=== PATIENT | female | born 1980 | race African-American/Black ===

== ENCOUNTER → 2020-07-30 09:45 | Outpatient (BNVA) | payer BC, SELFPAY | PROVIDERS: PCP Student in an Organized Health Care Education/Training Program; Visit Provider Internal Medicine Cardiovascular Disease | DX: I10 Essential (primary) hypertension (principal); G47.30 Sleep apnea, unspecified; Z79.899 Other long term (current) drug therapy | CPT/HCPCS: 99204; 93005 ==

== ENCOUNTER → 2020-11-04 10:14 | Outpatient (REF) | payer BC, SELFPAY ==
--- NOTE | 2020-11-04 10:17 | CA_ITS ---
Transthoracic Echocardiogram Patient (Last, First, Middle): Jl Burns, Gender: Female Date of : 1980 Age: 40 Procedure Date: 11/04/2020 Procedure Type: Transthoracic Echocardiogram Location: OP Height: 170.18 cm Weight: 92.53 kg BSA: 2.04 m2 Heart Rate: bpm BP: 160 / 90 mmHg Grid Trimmer: RODERICK Referring MD: Giacomo Toussaint MD Supervisor [employer] Drilling: Jett Munguia MD Symptoms: I10 - Essential (primary) hypertension Study Quality: Good ECG Rhythm: Sinus Conclusions: - 1. Normal LV systolic function with moderate LVH with pseudonormal filling pattern 2. Mildly dilated with left and right atrium 3. Normal cardiac valvular Doppler 4. Normal RV systolic pressure 5. No gross pericardial effusion Findings Left Ventricle Normal left ventricular size and systolic function. There is moderately increased left ventricular wall thickness. The visually estimated ejection fraction is between 60-65%. Spectral Doppler is indicative of a pseudonormal filling pattern. E/E prime ratio is between 8 and 15 consistent with indeterminate filling pressures. Right Ventricle Normal right ventricular cavity size and systolic function. Atria The left atrium is mildly dilated. There is no evidence of interatrial shunt. The right atrium is mildly dilated. Aortic Valve Normal aortic valve structure and function. There is no aortic valve stenosis. There is no aortic valve regurgitation. Mitral Valve Normal mitral valve structure and function. There is trace mitral valve regurgitation. There is no mitral valve stenosis. Pulmonic Valve The pulmonic valve is likely normal. There is trace pulmonic valve regurgitation. Tricuspid Valve Normal tricuspid valve structure. There is trace tricuspid valve regurgitation. The right ventricular systolic pressure is normal. The right ventricular systolic pressure is 32 mmHg. Normal right atrial pressure. There is no evidence of pulmonary hypertension. Great Vessels All visible segments of the aorta are normal in size. The pulmonary artery was not well visualized. Venous The inferior vena cava is normal in size and collapses greater than 50% with inspiration. Pericardium/Pleural There is no evidence of pericardial effusion. Prior Study Comparison Changes noted compared to prior study dated: 06/06/2018. LVH is moderate Measurements M-Mode Liner Measurements Normals - Women/Men IVSd: 1.94 0.6-0.9/0.6-1.0 cm LVIDd: 5.44 3.9-5.3/4.2-5.9 cm LVIDd Index: 2.67 1.9-3.2 cm/m2 LVIDs: 3.32 2.0-3.8 cm LVPWd: 1.71 0.6-0.9/0.6-1.0 cm LV Mass: 613.70 67-162/88-224g LV Mass Index: 300.84 43-95/49-115 g/m2 M-Mode Volumes LV EDV: 144.00 LV ESV: 44.80 2D Linear Measurements IVSd: 1.49 0.6-0.9/0.6-1.0 cm LVIDd: 5.29 3.9-5.3/4.2-5.9 cm LVIDd Index: 2.59 2.4-3.2/2.2-3.1 cm/m2 LVIDs: 3.62 2.0-3.6 cm LVPWd: 1.52 0.7-1.1 cm Ao Root: 2.60 2.1-3.5 cm LA Diam: 4.60 2.7-3.8/3.0-4.0 cm LAIDs Index: 2.25 1.5-2.3 cm/m2 LV Mass: 440.70 67-162/88-224 g LV Mass Index: 216.03 43-95/49-115 g/m2 LVOT Diam: 2.10 3.0+(-)1.3 cm 2D Systolic Function EF 4C: 64.30 >55% EF 2C: 48.00 >55% EF BiP: 55.70 >55% M-Mode Systolic Function FS: 39.00 27-47/25-43% LVEF: 68.90 >55% Mitral Valve MV Pk E: 0.76 MV PK A: 0.55 MV Decel Time: 258.00 E/A: 1.40 E'Lateral: 7.29 E'Medial: 6.09 E/E' Med: 12.50 E/E' Lat: 10.40 PHT: 76.00 MVA PHT: 2.89 Decel [place]: 2.94 Aortic Valve AoV Pk Hammad: 1.67 AoV Pk Grad: 11.00 LVOT LVOT Pk Hammad: 1.45 LVOT Mn Hammad: 0.93 LVOT VTI: 0.32 LVOT Pk Grad: 8.00 LVOT Mn Grad: 4.00 LVOT Diam: 2.10 LVOT Area: 3.46 Diastolic Function MV Pk E: 0.76 MV Pk A: 0.55 E/A: 1.40 E'Medial: 6.09 E/E' Med: 12.50 E' Laterial: 7.29 E/E' Lat: 10.40 Right Ventricle TAPSE (mm): 2.77 Tricuspid Valve TR Pk Hammad: 2.70 TR Pk Grad: 29.00 RA Press: 3.00 RVSP: 32.00 Great Vessels Aorta Ao Root-2D: 2.60 2.0-3.7 cm Ao Asc: 3.40 2.1-3.4 cm Updated in Other Vendor System with Status of Final Jett Munguia MD electronically signed on 11/04/2020 4:29:19 PM with status of Final
== END ==
LOC: HO.CARD 10:14
PROVIDERS: PCP Student in an Organized Health Care Education/Training Program; Visit Provider Internal Medicine Cardiovascular Disease
DX: I10 Essential (primary) hypertension (principal)
CPT/HCPCS: 93306

== ENCOUNTER → 2020-11-11 10:17 | Outpatient (BNVA) | payer BC, SELFPAY | PROVIDERS: PCP Student in an Organized Health Care Education/Training Program; Referring Provider Student in an Organized Health Care Education/Training Program; Visit Provider Internal Medicine Cardiovascular Disease | DX: I10 Essential (primary) hypertension (principal) | CPT/HCPCS: 93005 ==

== ENCOUNTER 2022-12-22 10:12 | Outpatient (REF) | payer BC, SELFPAY ==
[2022-12-22 14:47] LABS: Alanine Aminotransferase 11 U/L (0-31); Albumin Level 4.1 g/dL (3.5-5.0); Alkaline Phosphatase 41 U/L (39-117); Anion Gap 13 (12-20); Aspartate Amino Transferase 14 U/L (5-31); Bilirubin Total 0.6 mg/dL (0.0-1.0); Blood Urea Nitrogen 26 mg/dL (9-16); Calcium 9.4 mg/dL (8.4-10.2); Carbon Dioxide 25 mmol/L (22-29); Chloride 105 mmol/L (96-108); Estimated Glomerular Filt Rate 58; Glucose Random 79 mg/dL (60-115); Magnesium 2.3 mg/dL (1.6-2.6); Sodium 139 mmol/L (135-145); Total Protein 7.4 g/dL (6.5-8.0)
[2023-01-01 15:09] LABS: Aldosterone/Renin Ratio 9.4 Ratio (0.9-28.9); Plasma Renin Activity 0.32 ng/mL/h (0.25-5.82)
== END 2022-12-22 10:13 | disposition home or self-care (01) ==
LOC: HO.CHCLDS 10:12
PROVIDERS: Visit Provider Family Medicine
DX: I10 Essential (primary) hypertension (principal)
CPT/HCPCS: 36415; 80053; 82088; 83735

== ENCOUNTER 2022-12-28 11:26 | Outpatient (REF) | payer BC, SELFPAY ==
[2023-01-01 14:19] LABS: Metanephrine, Free 24U 162 mcg/24 h (58-203); Normetanephrine, Free 24U 333 mcg/24 h (88-649); Total Metanephrine, Free 24U 495 mcg/24 h (182-739); Total Volume 24U 1175 mL
== END 2022-12-28 11:27 | disposition home or self-care (01) ==
LOC: HO.CHCLNP 11:26
PROVIDERS: Visit Provider Family Medicine
DX: I10 Essential (primary) hypertension (principal)
CPT/HCPCS: 83835

== ENCOUNTER 2024-01-10 16:07 | Outpatient (REF) | payer BC, SELFPAY ==
[2024-01-11 10:47] LABS: Bacterial Vaginosis PCR NEGATIVE (Negative); Candida Group PCR NOT DETECTED (Not Detect); Candida glab krusei PCR NOT DETECTED (Not Detect); Trichomonas vaginalis PCR NOT DETECTED (Not Detect)
== END 2024-01-10 16:08 | disposition home or self-care (01) ==
LOC: HO.CHCLNP 16:07
PROVIDERS: Visit Provider Family Medicine
DX: N76.0 Acute vaginitis (principal); R30.0 Dysuria
CPT/HCPCS: 0352U; 87086

== ENCOUNTER 2024-04-30 11:38 | Outpatient (REF) | payer BC, SELFPAY ==
[2024-05-01 11:26] LABS: HPV 16,18/45 See PAP report
[2024-05-03 02:58] LABS: C. trachomatis RNA TMA NOT DETECTED (NOT DETECTED); N. gonorrhoeae RNA TMA NOT DETECTED (NOT DETECTED); Trichomonas (NAAT) NOT DETECTED (NOT DETECTED)
== END 2024-04-30 11:39 | disposition home or self-care (01) ==
LOC: HO.LNP 11:38
PROVIDERS: Visit Provider Family Medicine
DX: Z12.4 Encounter for screening for malignant neoplasm of cervix (principal); Z11.51 Encounter for screening for human papillomavirus (HPV); Z11.3 Encounter for screening for infections with a predominantly sexual mode of transmission
CPT/HCPCS: 87491; 87591; 87626; 87661; 88175

== ENCOUNTER 2024-04-30 12:46 | Outpatient (REF) | payer BC, SELFPAY ==
[2024-04-30 14:30] LABS: Estimated Average Glucose 100 mg/dL; Hemoglobin A1C 91.3394 umol/L; Hemoglobin A1c % 5.1 % (<6.0); Total Hemoglobin (HGBA1C) 2793.9564 umol/L
[2024-04-30 14:40] LABS: Rheumatoid Factor < 13.0 IU/mL (<15.0)
[2024-04-30 14:41] LABS: Uric Acid 4.4 mg/dL (2.4-5.7)
[2024-04-30 14:45] LABS: Erythrocyte Sedimentation Rate 20 MM/HR (0-20)
[2024-04-30 14:51] LABS: Alanine Aminotransferase < 6 U/L (0-31); Alkaline Phosphatase 49 U/L (39-117); Anion Gap 7 (12-20); Aspartate Amino Transferase 17 U/L (5-31); Bilirubin Direct 0.3 mg/dL (0.0-0.5); Bilirubin Total 0.8 mg/dL (0.0-1.0); Blood Urea Nitrogen 15 mg/dL (9-16); C Reactive Protein < 0.10 mg/dL (< or = 0.50); Calcium 8.6 mg/dL (8.4-10.2); Carbon Dioxide 24 mmol/L (22-29); Chloride 112 mmol/L (96-108); Cholesterol 133 mg/dL (<200); Estimated Glomerular Filt Rate > 60; Glucose Random 67 mg/dL (60-115); HDL Cholesterol 48 mg/dL (>40); LDL Cholesterol Calculated 76 mg/dL (<100); Potassium 4.2 mmol/L (3.3-5.1); Sodium 139 mmol/L (135-145); Total Protein 7.1 g/dL (6.5-8.0); Triglycerides 49 mg/dL (<150)
== END 2024-04-30 12:47 | disposition home or self-care (01) ==
LOC: HO.CHCLDS 12:46
PROVIDERS: PCP Student in an Organized Health Care Education/Training Program; Referring Provider Pediatrics; Visit Provider Student in an Organized Health Care Education/Training Program
DX: E11.9 Type 2 diabetes mellitus without complications (principal); I10 Essential (primary) hypertension; M25.562 Pain in left knee
CPT/HCPCS: 36415; 80048; 80061; 80076; 83036; 84550; 85652; 86140; 86431

== ENCOUNTER 2024-11-25 16:28 | Outpatient (REF) | payer BC, SELFPAY ==
--- OUTSIDE RECORDS SUMMARY | 2024-11-25 16:30 | XMS_ITS | Encounter Summary ---
Author Organization [employer] Address [address] [place] [address] Care Team Providers Care Automotive Exhaust Emissions Technician Name Role Phone Kathryn Naqvi MD Primary Care Provider [phone] Reason for Visit * Reason Onset Date Comments triage 07/14/2022 Encounter Details Date Type Department Care Team ([facility] st Contact Info) Description 07/14/2022 Telephone [facility] MED[facility] [address] [place] [address] Kathryn Naqvi MD [address] [place] [address] triage Social History Tobacco Use Types Packs/Day Years Used Date Smoking Tobacco: Never Assessed Comments Unknown Sex and Gender Information Value Date Recorded Sex Assigned at Female 02/14/2022 10:22 AM EDT Legal Sex Female 10:22 AM EDT Gender Identity Choose not to disclose 10:22 AM EDT Sexual Orientation Choose not to disclose 2021 10:22 AM EDT documented as of this encounter Miscellaneous Notes * Telephone Encounter - Erica Greenwood RN - 07/14/2022 1:32 PM EDT Triage call Pt reports for month now , wakes up with bruises on bilateral lower legs. Pt reports bruises are yellowish-purple and > half dollar size. Pt reports legs don't hurt unless sitting downor laying down and especially at night. Pt has 2 bruises on right leg and 1 on left leg. apt with Dr. Eisenberg 07/20 @ 1115am, Pt agrees with disposition and home care reviewed. Protocol Used: Bruises (Adult) Protocol-Based Disposition: See in Office or Video Visit within 2 Weeks Positive Triage Question: * Bruising easily is a chronic symptom (recurrent or ongoing AND present > 4 weeks) * All higher-acuity triage questions were negative Care Advice Discussed: * Reassurance and Education * Apply Local Cold * Use Heat on Area After 48 Hours * Pain Medicines * Pain Medicines - Extra Notes and Warnings * Avoid Aspirin * Note to Triager - Aspirin * Expected Course * Reasons To Call Back - Bruise is not fading by 10 days - Bruise persists over 3 weeks - You become worse * Telephone Encounter - Cb López - 07/14/2022 9:44 AM EDT Symptoms: Bruises - Not From Injury, Leg Pain - Not From Injury Outcome: Schedule an urgent appointment (within 1 hour) or talk to a nurse or provider soon Reason: Severe pain now The caller accepted this outcome documented in this encounter Plan of Treatment Upcoming Encounters Date Type Department Care Team (Late st Contact Info) Description 01/13/2025 10:15 AM EDT Office Visit [facility] [address] [place] [address] Kathryn Naqvi MD [address] [place] [address] documented as of this encounter Visit Diagnoses Not on filedocumented in this encounter Care Teams Automotive Exhaust Emissions Technician Relationship Specialty Start Date End Date Kathryn Naqvi MD [address] [place] [id number] PCP - General Family Medicine 05/16/13 documented as of this encounter
--- OUTSIDE RECORDS SUMMARY | 2024-11-25 16:30 | XMS_ITS | Clinical Summary ---
Author Organization [facility] Address [address] [facility] [place] [address] Phone Care Team Providers Care Educational Guidance Counselor Name Role Phone Kathryn Naqvi MD Primary Care Provider [phone] Allergies Active Allergy Reactions Criticality Noted Date Comments Amlodipine Itching 05/17/2023 Doxycycline 05/16/2024 Hydralazine Other 09/18/2024 Possible hydralazine associated pericardial effusion Medications albuterol sulfate (ProAir RespiClick) 90 mcg/actuation aerosol powdr breath activated Inhale into the lungs. Active carvediloL (COREG) 25 mg tablet Take 1.5 Tablets by mouth 2 times daily (with meals). 11/16/2023 Active lisinopril (PRINIVIL,ZESTR IL) 40 mg tablet Take 1 tablet (40 mg total) by mouth 1 (one) time each day. 90 tablet 1 06/14/2024 Active spironolactone (ALDACTONE) 25 mg tablet Take 1 tablet (25 mg total) by mouth 1 (one) time each day. 90 tablet 1 06/14/2024 Active ALPRAZolam (XANAX) 0.5 mg tablet Take 1 tablet (0.5 mg total) by mouth 1 (one) time each day if needed. 08/19/2024 Active sertraline (ZOLOFT) 25 mg tablet Take 1 tablet (25 mg total) by mouth 1 (one) time each day in the morning. 08/20/2024 Active cloNIDine (CATAPRES) 0.1 mg tablet Take 1 tablet (0.1 mg total) by mouth if needed for high blood pressure. Active Active Problems Problem Noted Date Diagnosed Date Hypertensive heart disease without heart failure 09/18/2024 Assessment & Plan (09/18/2024 9:53 AM EDT): The patient has a history of hypertensive heart disease. she has a history of resistant hypertension. Previous cardiac MRI showed evidence of mild LVH, normal LVEF, and evidence of nonischemic fibrosis. Infiltrative cardiomyopathy was deemed to be less likely as a cause of the patient's LVH and nonischemic fibrosis. The patient's blood pressure is currently well-controlled. As such, we will continue her current medication regimen. Abnormal Papanicolaou smear of cervix with positive human papilloma virus (HPV) test 05/08/2024 Overview (05/08/2024): HPV test positive 08/29 Pericardial effusion 12/13/2023 Overview (05/08/2024): Last Assessment & Plan: The patient was found to have a pericardial effusion on her cardiac MRI. Cardiac MRI described the size of the pericardial effusion is moderate. There was no evidence of tamponade on the cardiac MRI images. The patient does not have any symptoms suggestive of pericarditis. She does not have any history of recent viral illnesses. A follow-up imaging study was done with an echocardiogram in August 2023 that showed a small sized pericardial effusion. Again, there was no evidence of tamponade. Laboratory testing was done to exclude potential causes of the pericardial effusion. Laboratory testing done on 09/21/2023 showed normal serum electrolytes, normal renal function, mild anemia, normal LFTs, normal TSH, normal ODILIA test, normal sed rate, and normal CRP level. The patient's last screening mammogram was done 4 years ago and it was noted to be normal. I discussed this with the patient. She will follow-up with her primary care physician to consider the need for a repeat mammogram given the finding of the pericardial effusion. On the other hand, the patient is on chronic therapy with hydralazine. Hydralazine can cause pericardial effusions. As such, I instructed the patient to discontinue the hydralazine. To maintain her blood pressure controlled, will increase the dose of her carvedilol. The patient will undergo a stress echocardiogram to rule out ischemia as a cause of her episodes of atypical chest discomfort. Will do stress test to reevaluate the size of her pericardial effusion. Assessment & Plan (09/18/2024 9:53 AM EDT): The patient has a history of a pericardial effusion. The pericardial effusion was noted to be moderate in size on a prior cardiac MRI. TSH level was normal. ODILIA test was negative. Sed rate was normal. CRP level was normal. Pericardial effusion was deemed to be secondary to the use of hydralazine. Hydralazine was discontinued. Afterwards, transthoracic echo showed a small pericardial effusion. Subsequent stress echo showed a trivial pericardial effusion. At this point, we will order a follow-up echocardiogram to reevaluate her pericardial effusion. Orders: Transthoracic echocardiogram (TTE) complete with PRN contrast, bubble, strain, and 3D order panel; Future perflutren lipid microsphere (DEFINITY) 1.3 mL in sodium chloride 0.9% 8.7 mL injection Assessment & Plan (05/16/2024 10:00 AM EST): The patient was found to have pericardial effusion on cardiac MRI which was noted to be moderate in size with no evidence of tamponade. Follow-up echocardiogram August 2023 showed small size pericardial effusion with no evidence of tamponade. Lab testing was done including normal ODILIA, sed rate and CRP level. She continues to follow with her primary care physician regarding maintenance of mammograms. Her hydralazine was discontinued. Recent stress echocardiogram showed resting echocardiogram with trivial pericardial effusion. At this point, we will continue to monitor with periodic echocardiograms to monitor for progression and she will notify me of any changes in her symptoms. Snoring 05/17/2023 Overview (05/08/2024): Last Assessment & Plan: The patient has a history of nighttime snoring. She also has a history of obesity and resistant hypertension. As such, we will proceed with a sleep study to rule out the presence of sleep apnea. Assessment & Plan (09/18/2024 9:53 AM EDT): The patient has a history of nighttime snoring. She has a history of resistant hypertension and will need to consider the possibility that sleep apnea may be contributing to her persistent hypertension. Previously, she was referred for a sleep study but it seems that this has not been done. Will refer the patient again for a sleep study. Assessment & Plan (05/16/2024 10:00 AM EST): I have given the patient the number to sleep medicine services to arrange her sleep study. Morbid obesity ([facility] V24, [facility] V28) 2014 Asthma 10/21/2014 HTN (hypertension) 10/21/2014 Overview (05/08/2024): Last Assessment & Plan: The patient has a history of resistant hypertension. The patient states that her hypertension was diagnosed around the age of 24. The patient does have evidence of endorgan damage in the form of hypertensive heart disease as described on her cardiac MRI. Of note, her LVEF is noted to be normal on the cardiac MRI. The patient is currently on carvedilol, lisinopril, hydralazine, and spironolactone. Given her pericardial effusion and the possibility that the hydralazine may be contributing to this, we will discontinue the hydralazine. In its place, we will increase her carvedilol to 37.5 mg orally twice a day. Previous testing to rule out secondary causes of hypertension has been nonrevealing. Renal artery duplex done recently did not show any significant renal artery stenosis. Previous plasma metanephrine level does not show any evidence suggestive of pheochromocytoma. Previous laboratory testing did not show any evidence of hyperaldosteronism. Sleep study was also ordered to rule out sleep apnea as a cause of her hypertension and the sleep study is pending to be completed in January 2024. Assessment & Plan (09/18/2024 9:53 AM EDT): The patient has a history of resistant hypertension. The patient states that her hypertension was diagnosed around the age of 24. The patient does have evidence of endorgan damage in the form of hypertensive heart disease as described on her cardiac MRI. Of note, her LVEF is noted to be normal on the cardiac MRI and on subsequent echocardiograms. The patient is currently on carvedilol, lisinopril, and spironolactone. Blood pressure is well-controlled. Previous testing to rule out secondary causes of hypertension has been nonrevealing. Renal artery duplex done recently did not show any significant renal artery stenosis. Previous plasma metanephrine level does not show any evidence suggestive of pheochromocytoma. Previous laboratory testing did not show any evidence of hyperaldosteronism. The patient does have a history of nighttime snoring and therefore we need to consider the possibility of sleep apnea. However, a sleep study has not been done as previously requested. Will refer the patient again for a sleep study. Assessment & Plan (05/16/2024 10:00 AM EST): The patient has a history of resistant hypertension which has been chronic dating back to the age of 24. She did undergo a cardiac MRI in the past which stated that it could represent hypertensive heart disease and less likely infiltrative cardiomyopathy. LVEF was noted to be normal. She is currently on carvedilol 37.5 mg orally twice daily, lisinopril 40 mg orally daily, spironolactone 25 mg orally daily and recently was started on clonidine 0.1 mg orally twice daily. Hydralazine was discontinued due to history of pericardial effusion. In the past, secondary causes of hypertension were nonrevealing as outlined above. On today's visit, she denies any cardiac symptoms related to hypertension. She was recently started on clonidine. She has not taken spironolactone yet today. Blood pressure 140/90. We discussed her hypertension in depth today. Did consider the possibility of referring to nephrology for further management, however at this point we discussed that we will proceed with a sleep study as scheduled and continue to monitor her blood pressures after the recent start of clonidine. In the future, could consider increasing clonidine as well. The patient agrees with this plan. She will notify me of any consistently elevated blood pressure readings. I have reviewed with the patient the importance of a heart healthy lifestyle which includes eating a low-fat low-salt diet, getting regular exercise, maintaining a healthy weight, not smoking, and following up with routine medical care. Ascending aorta dilation ([facility] V24) 5 Assessment & Plan (09/18/2024 9:53 AM EDT): The patient was found to have a mild ascending aorta dilation on a prior echocardiogram. Will order a follow-up echocardiogram to reevaluate the ascending aorta dilation. Orders: Transthoracic echocardiogram (TTE) complete with PRN contrast, bubble, strain, and 3D order panel; Future perflutren lipid microsphere (DEFINITY) 1.3 mL in sodium chloride 0.9% 8.7 mL injection Assessment & Plan (05/16/2024 10:00 AM EST): Patient's recent fasting lipid panel April 2024 showed acceptable cholesterol control. Type 2 diabetes mellitus wit h other specified complication ([facility] V24, [facility] V28) 10/21/2014 Overview (05/08/2024): Diabetes type 2, uncontrolled Resolved Problems Problem Noted Date Diagnosed Date Resolved Date Snoring 09/18/2024 09/18/2024 Chest pain 11/16/2023 05/16/2024 Overview (05/08/2024): Last Assessment & Plan: The patient came for evaluation due to episodes of chest pain. The description of the symptoms is consistent with atypical chest pain. The patient has the following risk factors for coronary artery disease: Hypertension and hyperlipidemia given the patient's age, gender, description of the symptoms, and risk factors for CAD, the patient has an intermediate risk for coronary artery disease. As such, will order a stress echocardiogram to rule out the presence of ischemic heart disease as a cause of the patient's chest pain. Cardiomyopathy ([facility] V24, [facility] V28) 05/16/2023 09/18/2024 Overview (05/08/2024): Last Assessment & Plan: The patient has evidence of a cardiomyopathy. Recent cardiac MRI showed evidence of what appears to be hypertensive heart disease given her LV dilation with mild LVH and normal LVEF. The labial edema and has been examination was suggestive of myocardial fibrosis. No conclusive evidence of an infiltrative cardiomyopathy. As such, the first line of management for this is strict blood pressure control. Will increase her carvedilol to 37.5 mg orally twice a day. The patient will continue her spironolactone and lisinopril. Assessment & Plan (05/16/2024 10:00 AM EST): The patient has evidence of cardiomyopathy with cardiac MRI in the past showing evidence of what appears to be hypertensive heart disease given LV dilation, mild LVH and normal LVEF. No conclusive evidence of infiltrative cardiomyopathy. She has been treated for first-line management for this with strict blood pressure control. Orders: ECG 12 lead Encounters Date Type Department Care Team Description 09/18/2024 9:20 AM EDT Office Visit [facility] [address] [place] [id number] Norberto Barton MD Primary hypertension (Primary Dx); Pericardial effusion; Ascending aorta dilation (CMS/HCC V24); Snoring; Hypertensive heart disease without heart failure 08/28/2024 8:30 AM EDT Consult [facility] [place] [address] [place] [address] Jose Armando Andersen MD Breast pain (Primary Dx); Cyst of breast, unspecified laterality; History of bilateral breast reduction surgery; Family history of breast cancer from Last 3 Months Immunizations Name Administration Dates Next Due H1N1 Inj Preservative Free 02/19/2009 Influenza trivalent, 0.5mL, preservative free (Fluarix; FluLaval; Fluzone) ages 6mo and older (Afluria) 3 years and older 02/19/2009 [place] SARS-CoV-2 COVID-19, mRNA, LNP-S, preservative free 05/26/2021,06/02/2020,05/13/2020 Surgical History Surgery Date Site/Laterality Comments SECTION PROCEDURE: HISTORICAL DELIVERY TUBAL LIGATION PROCEDURE: HISTORICAL TUBAL LIGATION Medical History Medical History Date Comments Type II or unspecified type diabetes mellitus with unspecified complication, not stated as uncontrolled DX:Type II or unspecified ty pe diabetes mellitus with unspecified complication, not stated as uncontrolled HTN (hypertension) DX:HTN (hyper tension) Asthma DX:Asthma Morbid obesity (CMS/HCC V24, CMS/HCC V28) 12/09/2014 DX:Morbid obesity (HCC) Family History Medical History Relation Name Comments Hypertension Brother 1 Hypertension Father Other: renal disease Maternal Grandmother Hypertension Mother hyperthyroid, Bipolar disorder Mother's side 1 uncle Hypertension Sister 1 depression/anxi ety, diabetes Relation Name Status Comments Brother 1 Brother 2 Father Maternal Grandmother Mother Mother's side 1 Mother's side 2 Sister 1 Sister 2 Social History Tobacco Use Types Packs/Day Years Used Date Smoking Tobacco: Never Smokeless Tobacco: Never Alcohol Use Standard Drinks/Week Comments Yes 0 (1 standard drink = 0.6 oz pur e alcohol) occ Comments Unknown Sex and Gender Information Value Date Recorded Sex Assigned at Not on file Legal Sex Female 11:23 AM EST Gender Identity Not on file Sexual Orientation Not on file Obstetrics History Last Filed Vital Signs Vital Sign Reading Time Taken Comments Blood Pressure 130/80 09/18/2024 9:16 AM EDT Pulse 75 09/18/2024 9:16 AM EDT Temperature 36.6 C (97.9 F) 08/28/2024 8:46 AM EDT Respiratory Rate - - Oxygen Saturation 97% 05/16/2024 9:22 AM EST Inhaled Oxygen Concentration - - Weight 87 kg (191 lb 12.8 oz) 09/18/2024 9:16 AM EDT Height 170.2 cm (5' 7 ) 09/18/2024 9:16 AM EDT Body Mass Index 30.04 09/18/2024 9:16 AM EDT Plan of Treatment Upcoming Encounters Date Type Department Care Team (Late st Contact Info) Description 12/18/2024 7:00 AM EDT Ancillary Procedure [facility] [address] [facility] [address] [place] [address] Health Maintenance Due Date Last Done Comments Breast Cancer Screening 1979 Diabetes: Annual Foot Exam 1989 Diabetes: Annual Retina Eye Exam 1989 Hepatitis B Vaccines (1 of 3 - 19+ 3-dose series) 1998 Colorectal Cancer Screening: Colonoscopy 03/30/2022 Diabetes: Annual Urine Albumin-Creatinine Ratio (uACR) 03/30/2022 Social Influencers of Health Screening 03/30/2022 COVID-19 Vaccine (4 2023-2 5 season) 2023 05/26/2021, 06/02/2020, 05/13/2020 Depression Screening 04/17/2024 Diabetes: Blood Sugar Contro l Test (HGBA1C) 10/28/2024 04/30/2024, 08/29/2014 Influenza Vaccine (#1) 2024 , 02/19/2009, 02/19/2009 Diabetes: Annual GFR (Glomerular Filtration Rate) 04/30/2025 04/30/2024, 12/22/2022 Hypertension/CHF/CAD Annual BMP Blood Test 04/30/2025 04/30/2024, 12/22/2022 Cervical Cancer Screening: P ap Smear 04/30/2027 04/30/2024, 08/29/2014, 08/29/2014 Cholesterol Screening (Lipid Panel) 04/30/2029 04/30/2024, 07/20/2022 DTaP,Tdap,and Td Vaccines (3 - Td or Tdap) 05/27/2031 05/27/2021, 12/23/2016 HIV Screening Completed 11/19/2008 Hepatitis C Screening Completed 07/20/2022 Pneumococcal Vaccine: Pediatrics (0 to 5 Years) and At-Risk Patients (6 to 49 Years) Completed 04/30/2024 HIB Vaccines Aged Out No longer eligi ble based on patient's age to complete this topic HPV Vaccines Aged Out No longer eligi ble based on patient's age to complete this topic Hepatitis A Vaccines Aged Out No long er eligible based on patient's age to complete this topic IPV Vaccines Aged Out No longer eligi ble based on patient's age to complete this topic MMR Vaccines Aged Out No longer eligi ble based on patient's age to complete this topic Meningococcal ACWY Vaccine Aged Out N o longer eligible based on patient's age to complete this topic Meningococcal B Vaccine Aged Out No l onger eligible based on patient's age to complete this topic RSV Immunization Patients Under 20 months Aged Out No longer eligible b ased on patient's age to complete this topic Varicella Vaccines Aged Out No longer eligible based on patient's age to complete this topic Procedures Procedure Name Priority Date/Time Associated Diagnosis Comments HM ANNUAL BMP BLOOD TEST Routine 12/22/2022 HEPATITIS C SCREENING Routine 07/20/2022 LIPID PANEL Routine 07/20/2022 HEMOGLOBIN A1C Routine 08/29/2014 HPV Routine 08/29/2014 HIV SCREENING Routine 11/19/2008 from Last 3 Months or Most Recently Relevant to Health Maintenance Results * Annual BMP Blood Test (12/22/2022) [facility] Annual BMP Blood Test abstracted Result [facility] Provider HEALTH MAINTENANCE Final Result * Hepatitis C Screening (07/20/2022) [facility] Hepatitis C Screening abstracted Result [facility] HEALTH MAINTENANCE Final Result * Lipid panel (07/20/2022) [facility] LDL/HDL Ratio 0 Comment:no interpretation, a bstracted Triglycerides 0 mg/dL Comment:no interpretation, a bstracted Cholesterol 0 mg/dL Comment:no interpretation, a bstracted HDL 0 mg/dL Comment:no interpretation, a bstracted LDL Cholesterol 0 mg/dL Comment:no interpretation, a bstracted Blood Venous blood specimen / Unknown Result [facility] Provider LAB BLOOD ORDERABLES Catherine l Result * Cervical Cancer Screening: HPV (08/29/2014) [facility] Cervical Cancer Screening: HPV no interpretation , abstracted [facility] Provider HEALTH MAINTENANCE Final Result * (ABNORMAL) Hemoglobin A1c (08/29/2014) [facility] Hemoglobin A1C 8.8(A) 4.0 - 6.0 % Blood Venous blood specimen / Unknown Result [facility] Provider LAB BLOOD ORDERABLES Catherine l Result * HIV Screening (11/19/2008) HIV Screening abstracted us Historical Provider HEALTH MAINTENANCE Final Result from Last 3 Months or Most Recently Relevant to Health Maintenance Insurance [facility] Care Teams Educational Guidance Counselor Relationship Specialty Start Date End Date Kathryn Naqvi MD [address] [place] [id number] PCP - General 11/24/22
[2024-11-28 10:19] LABS: TS Negative Control Passed; TS Panel A 1; TS Panel B 1; TS Positive Control Passed; TSpotTB Negative (Negative)
== END 2024-11-25 16:29 | disposition home or self-care (01) ==
LOC: HO.CHCLDS 16:28
PROVIDERS: Visit Provider Student in an Organized Health Care Education/Training Program
DX: Z11.1 Encounter for screening for respiratory tuberculosis (principal)
CPT/HCPCS: 36415; 86481

== ENCOUNTER 2024-12-03 18:41 | Outpatient (REF) | payer BC, SELFPAY ==
--- OUTSIDE RECORDS SUMMARY | 2024-12-03 18:46 | XMS_ITS | Clinical Summary ---
Author Organization [facility] Address [address] [place] [address] Phone Care Team Providers Care Shear Grinder Operator Helper Name Role Phone Kathryn Naqvi MD Primary Care Provider [phone] Allergies Active Allergy Reactions Criticality Noted Date [...] to arrange her sleep study. Morbid obesity ([facility] V24, [facility] V28) 2014 Asthma 10/21/2014 HTN (hypertension) 10/21/2014 [...] with routine medical care. Ascending aorta dilation ([facility] V24) 5 Assessment & Plan (09/18/2024 9:53 [...] diabetes mellitus wit h other specified complication ([facility] V24, [facility] V28) 10/21/2014 Overview (05/08/2024): Diabetes type 2, [...] cause of the patient's chest pain. Cardiomyopathy ([facility] V24, [facility] V28) 05/16/2023 09/18/2024 Overview (05/08/2024): Last Assessment [...] Description 09/18/2024 9:20 AM EDT Office Visit [facility] [address] [place] [address] Norberto Barton MD Primary hypertension (Primary Dx); Pericardial effusion; Ascending aorta dilation (CMS/HCC V24); Snoring; Hypertensive heart disease without heart failure from Last 3 Months Immunizations Name Administration Dates Next Due H1N1 Inj Preservative Free 02/19/2009 Influenza trivalent, 0.5mL, preservative free (Fluarix; FluLaval; Fluzone) ages 6mo and older (Afluria) 3 years and older 02/19/2009 Pfizer SARS-CoV-2 COVID-19, mRNA, LNP-S, preservative free 05/26/2021,06/02/2020,05/13/2020 [...] Description 12/18/2024 7:00 AM EDT Ancillary Procedure [facility] [address] [facility] [address] [place] [address] Health Maintenance Due Date Last Done Comments Breast Cancer Screening 1979 Diabetes: Annual Foot Exam 1989 Diabetes: Annual Retina Eye Exam 1989 Hepatitis B Vaccines (1 of 3 - 19+ 3-dose series) 1998 Colorectal Cancer Screening: Colonoscopy 03/30/2022 Diabetes: Annual Urine Albumin-Creatinine Ratio (uACR) 03/30/2022 Social Influencers of Health Screening 03/30/2022 COVID-19 Vaccine (2023-2 5 season) 2023 05/26/2021, 06/02/2020, 05/13/2020 Depression [...] Procedure Name Priority Date/Time Associated Diagnosis Comments ANNUAL BMP BLOOD TEST Routine 12/22/2022 HEPATITIS C SCREENING Routine 07/20/2022 LIPID PANEL Routine 07/20/2022 HEMOGLOBIN A1C Routine 08/29/2014 HPV Routine 08/29/2014 HIV SCREENING Routine 11/19/2008 from Last 3 Months or Most Recently Relevant to Health Maintenance Results * Annual BMP Blood Test (12/22/2022) [facility] Annual BMP Blood Test abstracted [facility] Provider HEALTH MAINTENANCE Final Result * Hepatitis C Screening (07/20/2022) [facility] Hepatitis C Screening abstracted [facility] HEALTH MAINTENANCE Final Result * Lipid panel (07/20/2022) [facility] LDL/HDL Ratio 0 Comment:no interpretation, a bstracted Triglycerides 0 mg/dL Comment:no interpretation, a bstracted Cholesterol 0 mg/dL Comment:no interpretation, a bstracted HDL 0 mg/dL Comment:no interpretation, a bstracted LDL Cholesterol 0 mg/dL Comment:no interpretation, a bstracted Blood Venous blood specimen / Unknown Result [facility] Provider LAB BLOOD ORDERABLES Catherine l Result * Cervical Cancer Screening: HPV (08/29/2014) [facility] Cervical Cancer Screening: HPV no interpretation , abstracted Result [facility] Provider HEALTH MAINTENANCE Final Result * (ABNORMAL) Hemoglobin A1c (08/29/2014) [facility] Hemoglobin A1C 8.8(A) 4.0 - 6.0 % Blood Venous blood specimen / Unknown Result [facility] Provider LAB BLOOD ORDERABLES Catherine l Result * HIV Screening (11/19/2008) [facility] HIV Screening abstracted [facility] Provider HEALTH MAINTENANCE Final Result from Last 3 Months or Most Recently Relevant to Health Maintenance Insurance [facility] Care Teams Shear Grinder Operator Helper Relationship Specialty Start Date End Date Kathryn Naqvi MD [address] [place] [phone] PCP - General 11/24/22
--- OUTSIDE RECORDS SUMMARY | 2024-12-03 18:46 | XMS_ITS | Encounter Summary ---
Author Organization [employer] Address [address] [facility] [address] [place] [address] Care Team Providers Care Upsetting Machine Operator Name Role Phone Kathryn Naqvi MD Primary Care Provider [phone] Reason for Visit * Reason Onset Date Comments triage 07/14/2022 Encounter Details Date Type Department Care Team ([facility] st Contact Info) Description 07/14/2022 Telephone [facility] [address] [place] [address] Kathryn Naqvi MD [address] [place] [address] triage Social History Tobacco Use Types Packs/Day [...] Description 01/13/2025 10:15 AM EDT Office Visit [facility] [address] [place] [address] Kathryn Naqvi MD [address] [place] [address] documented as of this encounter Visit Diagnoses Not on filedocumented in this encounter Care Teams Upsetting Machine Operator Relationship Specialty Start Date End Date Kathryn Naqvi MD [address] [place] [phone] PCP - General Family Medicine 05/16/13 documented as of this encounter
[2024-12-03 19:06] LABS: Appearance Urine Clear; Glucose Urine UA Negative (Negative); PH 7.0 (5.0-9.0); Specific Gravity - Urine 1.025 (1.005-1.025)
== END 2024-12-03 18:42 | disposition home or self-care (01) ==
LOC: HO.HHCLNP 18:41
PROVIDERS: Visit Provider Internal Medicine
DX: R10.32 Left lower quadrant pain (principal); R31.29 Other microscopic hematuria
CPT/HCPCS: 81001